=== PATIENT | female | born 1980 | race Caucasian/White ===

== ENCOUNTER 2019-07-17 13:25 | Emergency (ER) | payer OTHER ==
[~2019-07-17] VITALS: Ht 157.5 cm; Wt 79.4 kg
[~2019-07-17 13:25] MED LIST: INDERAL XL80 MG; TRAMADOL 50 MG50 MG PO; ZPAK PO
[2019-07-17 13:44] LABS: URINE BILIRUBIN NEGATIVE (Negative); URINE BLOOD NEGATIVE (Negative); URINE CLARITY CLEAR; URINE COLOR YELLOW; URINE GLUCOSE-RANDOM* NEGATIVE (Negative); URINE KETONES NEGATIVE (Negative); URINE LEUKOCYTES-REFLEX NEGATIVE (Negative); URINE NITRITE-REFLEX NEGATIVE (Negative); URINE PROTEIN (DIPSTICK) NEGATIVE (Negative)
[2019-07-17 14:27] LABS: ABSOLUTE NEUTROPHILS 4.9 thou/uL (1.4-8.2); BASOPHILS 0.5 % (0.0-2.0); EOSINOPHILS 1.4 % (0.0-3.0); HEMATOCRIT 40.4 % (37.0-47.0); HEMOGLOBIN 13.5 gm/dL (12.0-15.0); LYMPHOCYTES 32.5 % (24.0-44.0); MCH 28.7 pg (26.0-34.0); MCHC 33.5 g/dL (28.0-37.0); MCV 85.7 fL (80.0-100.0); MONOCYTES 10.2 % (1.0-8.0); PLATELET COUNT 307 thou/uL (150-400); POLYS 55.4 % (36.0-66.0); RBC 4.72 mil/uL (4.20-5.00); RDW 13.5 % (10.5-14.5); WBC 8.9 thou/uL (4.0-11.0)
[2019-07-17 14:35] LABS: CALCIUM 9.1 mg/dL (8.5-10.1); CREATININE 0.7 mg/dL (0.6-1.0); POTASSIUM 3.8 mmol/L (3.5-5.1)
[2019-07-17 14:41] LABS: ALBUMIN 3.4 g/dL (3.4-5.0); TOTAL BILIRUBIN 0.1 mg/dL (<0.1-1.0); TOTAL PROTEIN 7.2 g/dL (6.4-8.2)
[2019-07-17 15:59] VITALS: BP 104/80
--- NOTE | 2019-07-18 11:31 | EKG ---
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
== END 2019-07-17 16:13 | disposition home or self-care (01) ==
LOC: ER 13:25
PROVIDERS: Emergency Medicine
DX: R53.82 Chronic fatigue, unspecified (principal); I10 Essential (primary) hypertension; G43.909 Migraine, unspecified, not intractable, without status migrainosus; F41.9 Anxiety disorder, unspecified; Z90.49 Acquired absence of other specified parts of digestive tract; Z88.1 Allergy status to other antibiotic agents; Z88.0 Allergy status to penicillin; Z88.2 Allergy status to sulfonamides

== ENCOUNTER 2019-10-28 11:32 | Emergency (ER) | payer OTHER ==
[~2019-10-28] VITALS: Ht 208.3 cm; Wt 77.1 kg
[2019-10-28 12:00] LABS: URINE BILIRUBIN NEGATIVE (Negative); URINE BLOOD TRACE (Negative); URINE CLARITY CLEAR; URINE COLOR YELLOW; URINE GLUCOSE-RANDOM* NEGATIVE (Negative); URINE KETONES 1+ (Negative); URINE LEUKOCYTES-REFLEX TRACE (Negative); URINE NITRITE-REFLEX NEGATIVE (Negative); URINE PROTEIN (DIPSTICK) NEGATIVE (Negative); URINE SPECIFIC GRAVITY >= 1.030 (1.005-1.035); URINE UROBILINOGEN 0.2 E.U./dl (0.2-1.0)
[2019-10-28 12:05] LABS: AMP/METHAMP Negative (Negative); BARBITURATES Negative (Negative); BENZODIAZEPINES Negative (Negative); COCAINE Negative (Negative); METHADONE Negative (Negative); OPIATES Negative (Negative); PCP Negative (Negative)
[2019-10-28 12:10] LABS: BASOPHILS 0.6 % (0.0-2.0); EOSINOPHILS 0.8 % (0.0-3.0); HEMOGLOBIN 14.8 gm/dL (12.0-15.0); RBC 5.12 mil/uL (4.20-5.00); WBC 8.8 thou/uL (4.0-11.0)
[2019-10-28 12:11] LABS: ABSOLUTE NEUTROPHILS 5.8 thou/uL (1.4-8.2); HEMATOCRIT 43.9 % (37.0-47.0); LYMPHOCYTES 23.8 % (24.0-44.0); MCH 28.9 pg (26.0-34.0); MCHC 33.7 g/dL (28.0-37.0); MCV 85.7 fL (80.0-100.0); MONOCYTES 8.8 % (1.0-8.0); PLATELET COUNT 272 thou/uL (150-400)
[2019-10-28 12:19] LABS: CALCIUM 9.9 mg/dL (8.5-10.1); CREATININE 0.8 mg/dL (0.6-1.0); POTASSIUM 3.1 mmol/L (3.5-5.1)
[2019-10-28 12:24] LABS: SALICYLATE 8.2 mg/dL (2.8-20.0)
--- NOTE | 2019-10-28 17:13 | EKG ---
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
[2019-10-29 01:27] VITALS: BP 118/78
== END 2019-10-29 01:32 ==
LOC: ER 11:32
PROVIDERS: Emergency Medicine
DX: T39.1X2A Poisoning by 4-Aminophenol derivatives, intentional self-harm, initial encounter (principal); I10 Essential (primary) hypertension; G43.909 Migraine, unspecified, not intractable, without status migrainosus; F41.9 Anxiety disorder, unspecified; Z90.49 Acquired absence of other specified parts of digestive tract; Z88.1 Allergy status to other antibiotic agents; Z88.0 Allergy status to penicillin; Z88.2 Allergy status to sulfonamides; Y92.89 Other specified places as the place of occurrence of the external cause

== ENCOUNTER 2021-04-23 15:35 | Emergency (ER) | payer OTHER ==
[~2021-04-23] VITALS: Ht 157.5 cm; Wt 90.7 kg
[2021-04-23] MEDS ORDERED: MOBIC7.5 MG PO (17:15)
[2021-04-23 17:45] VITALS: BP 117/76
== END 2021-04-23 17:47 | disposition home or self-care (01) ==
LOC: ER 15:35
DX: M25.521 Pain in right elbow (principal); M25.531 Pain in right wrist; M25.511 Pain in right shoulder; I10 Essential (primary) hypertension; F41.9 Anxiety disorder, unspecified; G43.909 Migraine, unspecified, not intractable, without status migrainosus; Z90.49 Acquired absence of other specified parts of digestive tract; Z98.890 Other specified postprocedural states; Z79.899 Other long term (current) drug therapy; Z88.1 Allergy status to other antibiotic agents; Z88.0 Allergy status to penicillin; Z88.2 Allergy status to sulfonamides

== ENCOUNTER 2021-11-09 10:00 | Emergency (ER) | payer OTHER ==
[~2021-11-09] VITALS: Ht 157.5 cm; Wt 90.7 kg
[~2021-11-09 10:00] MED LIST changes: +MOBIC7.5 MG PO
[2021-11-09 11:55] LABS: ABSOLUTE NEUTROPHILS 5.2 thou/uL (1.4-8.2); BASOPHILS 0.9 % (0.0-2.0); HEMATOCRIT 41.7 % (37.0-47.0); HEMOGLOBIN 13.9 gm/dL (12.0-15.0); LYMPHOCYTES 27.7 % (24.0-44.0); MCH 29.2 pg (26.0-34.0); MCHC 33.4 g/dL (28.0-37.0); MCV 87.5 fL (80.0-100.0); MONOCYTES 7.6 % (1.0-8.0); PLATELET COUNT 309 thou/uL (150-400); POLYS 62.8 % (36.0-66.0); RBC 4.77 mil/uL (4.20-5.00); RDW 13.7 % (10.5-14.5); WBC 8.3 thou/uL (4.0-11.0)
[2021-11-09 12:05] LABS: CALCIUM 8.5 mg/dL (8.5-10.1); CREATININE 0.8 mg/dL (0.6-1.0); POTASSIUM 3.7 mmol/L (3.5-5.1)
--- NOTE | 2021-11-09 12:22 | EKG ---
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1980 Requested By: Vika Holbrook Order Number: [id number] MD: Pieter Kohli Measurements Intervals [place] Rate: 72 P: 44 IA: 128 QRS: 44 QRSD: 89 T: 21 QT: 386 QTc: 423 Interpretive Statements Sinus rhythm Probable left atrial enlargement Compared to ECG 10/28/2019 12:05:41 ST (T wave) deviation no longer present Electronically Signed On 11-09-2021 12:22:31 [employer] INTERN by Pieter Kohli [email or web address] <ELECTRONICALLY SIGNED> By: Pieter Kohli MD, [facility] 11/09/21 1222 1015 1015 Pieter Kohli MD, FACC /EPI
[2021-11-09 12:39] VITALS: BP 120/82
== END 2021-11-09 12:40 | disposition home or self-care (01) ==
LOC: ER 10:00
PROVIDERS: Emergency Medicine; Physician Assistant
DX: U07.1 COVID-19 (principal); R09.1 Pleurisy; I10 Essential (primary) hypertension; G43.909 Migraine, unspecified, not intractable, without status migrainosus; F41.9 Anxiety disorder, unspecified; Z98.890 Other specified postprocedural states; Z98.51 Tubal ligation status; Z90.49 Acquired absence of other specified parts of digestive tract; Z79.899 Other long term (current) drug therapy; Z88.1 Allergy status to other antibiotic agents; Z88.0 Allergy status to penicillin; Z88.2 Allergy status to sulfonamides